=== PATIENT | female | born 1980 | race Caucasian/White ===

== ENCOUNTER 2023-04-08 16:33 | Emergency (ER) | payer OTHER, SELFPAY ==
--- NOTE | 2023-04-08 16:45 | ED.GENADULT ---
HPI - General Adult General Chief complaint: General Medical Stated complaint: leg pain, anxiety? Time Seen by Provider: 04/08/23 20:51 Source: patient Mode of arrival: ambulatory Limitations: language barrier (Patient speaks some [place], 1st language is medical interpreter used) History of Present Illness HPI narrative: 42-year-old female who presents emergency department for evaluation of depression, anxiety, body aches times months. The patient recently arrived in the [facility] from [place], 3 days prior. She states that she has been having pain in [place] for months and her primary care doctor believes that she has fibromyalgia. 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 The patient has run out of all of her medications and does not have a primary care appointment until 04/15/2023. Patient is currently complaining of feeling very stressed and anxious . Patient's has an autistic son with ADHD who was also run out of his medications and who has behavior that is under control. Her son is also patient here in the emergency department for agitation, violent behavior at school, biting 6 children. The patient believes that restart her medications she would feel better. Patient takes the following medications: Citalopram 30 mg daily. zolpedem 10 mg at night. Pregabalin 75 mg, 1 pill twice a day Relafen (nabumetone) 500 mg pills, 1 pill twice a day Zanaflex (tizanidine) 2 mg t.i.d. p.r.n. spasm Related Data Previous Rx's Medication Instructions Recorded citalopram 30 mg capsule 30 mg PO DAILY 30 days #30 caps 04/08/23 nabumetone 500 mg tablet 500 mg PO BID PRN pain 30 days #60 04/08/23 tabs pregabalin 75 mg capsule 75 mg PO BID 30 days #60 caps 04/08/23 tizanidine 2 mg tablet 2 mg PO Q8H PRN muscle spasticity 04/08/23 #60 tabs zolpidem 10 mg tablet (Ambien) 10 mg PO BEDTIME 30 days #30 tabs 04/08/23 Allergies Allergy/AdvReac Type Severity Reaction Status Date / Time Penicillins Allergy Rash Verified 04/08/23 16:52 Review of Systems Review of Systems: Yes all other systems are reviewed and are negative PMFSH Past Medical History PMFSH Narrative: Past medical history: Depression, anxiety, muscle and joint pain the most likely fibromyalgia Social History Social History Advance Directives: No Advance Directives Information Provided: No Physical Exam ED Vital Signs: Vital Signs - 24 hr 04/08/23 16:46 Temperature 98 F Pulse Rate 105 H Respiratory Rate 16 Blood Pressure 144/113 H Pulse Oximetry 99 Oxygen Delivery Method Room Air BMI result Body Mass Index 28.3 Vital signs did reveal an elevated pulse and elevated blood pressure most likely secondary to stress and anxiety Exam: General: Awake, patient is tearful, anxious, answers questions appropriate Head: Normocephalic, atraumatic EENT: PERRL, Lids normal, sclera normal, conjunctiva normal, nose normal , ears normal, throat without erythema or exudates Neck: Supple, no adenopathy, trachea midline and nontender Lung: breath sounds symmetric, no wheezing, rales or rhonchi Chest: symmetric movement, nontender Heart: regular rate and rhythm, normal S1, S2 no murmurs or rubs Abdomen: soft, non-tender, nondistended, normal bowel sounds Back: no vertebral tenderness, no CVAT Extremities: no deformities, moves all extremities symmetrically Skin: no rashes, no lesion, normal color and warmth Neuro: Awake, alert, oriented, normal speech, cranial nerves intact, moves all extremities symmetrically Psych: Patient is depressed and anxious Course Course Course Narrative: RME: 42yo F w/no sig PMHx c/o back & body pain x months, and also increasing depression. States she is out of her medications (Clonazepam, Citalopram, Zolpidem & Pregabalin-has medication bottles). Recently moved here from [place] and has no providers, admits used to follow w/pain management in [place]. denies back injury. denies incontinence/retention HTNsive, Tachycardic, Tearful, stressed/anxious. +right lumbar paraspinal ttp. ambulating w/steady gait Full HPI, ROS and PE to be performed by primary ED provider. Medical Decision Making Medical Decision Making MDM Narrative: 42-year-old female with a history of depression, anxiety, insomnia, chronic pain most likely fibromyalgia who recently arrived in the [facility] from [place] 3 days prior who has run out of medications. Patient is here with her autistic son who also has ADHD and son is also run out of his medications. The son has attended school school but has been very agitated, he has been being is had an biting other children. This is caused increased stress on the patient. Patient's examination is consistent with her depression and I believe that she has a chronic pain syndrome most likely fibromyalgia. I will refill the patient's medications as below Citalopram 30 mg daily. zolpedem 10 mg at night. Pregabalin 75 mg, 1 pill twice a day Relafen (nabumetone) 500 mg pills, 1 pill twice a day Zanaflex (tizanidine) 2 mg t.i.d. p.r.n. spasm The patient and her son was seen by our care team counselor. The patient will be referred to [facility] in [place] to get a psychiatrist, psychiatric therapy and therapy and help with her child as well. The patient was given acetaminophen 970 mg orally, ibuprofen 400 mg orally, pregabalin 75 mg orally and Zanaflex 2 mg orally here in the emergency department. Differential Diagnosis Differential Diagnoses: The differential diagnosis associated with the presentation includes Differential diagnosis includes was not limited to anxiety, depression, chronic pain since Prescription Management I considered prescription management with: Other (Patient's outpatient medications were refilled) Chronic Conditions Patient?s care impacted by: Other (Anxiety, depression, chronic to pain syndrome) Discharge Plan Discharge Clinical Impression: Anxiety, Depression, Chronic pain syndrome Patient Disposition: Home, Self-Care Additional Instructions: I refilled your medications and sent them to the [facility] on [address] [facility] in [place] Follow the care team recommendations, they are referring you to [facility] in [place] to help you get therapy, psychiatrist help with your son's problems as well. Follow-up with your doctor in 2 days. Please return to the emergency department if your symptoms get worse or if you develop any symptoms that are concerning to you. Prescriptions: New citalopram 30 mg capsule 30 mg PO DAILY 30 Days Qty: 30 0RF zolpidem [Ambien] 10 mg tablet 10 mg PO BEDTIME 30 Days Qty: 30 0RF pregabalin 75 mg capsule 75 mg PO BID 30 Days Qty: 60 0RF nabumetone 500 mg tablet 500 mg PO BID PRN (Reason: pain) 30 Days Qty: 60 0RF tizanidine 2 mg tablet 2 mg PO Q8H PRN (Reason: muscle spasticity) Qty: 60 0RF
[2023-04-08 16:46] VITALS: BP 144/113; PULSE 105; RESP 16; TEMP 36.6; O2SAT 99; BMI 28.3
[2023-04-08] MEDS: Pregabalin 75 MG CAPSULE PO (22:13)
[2023-04-08] MEDS: Ibuprofen 400 MG TABLET PO (22:13)
[2023-04-08] MEDS: Zolpidem Tartrate 5 MG TABLET 10 MG PO (22:14)
[2023-04-08] MEDS: Acetaminophen 325 MG TABLET 975 MG PO (22:14)
--- NOTE | 2023-04-08 22:17 | PC.NURSE ---
Pt medicated per sep. Waiting on pharmacy for last med. plan of care ongoing.
[2023-04-08] MEDS: TiZANidine HCL 4 MG TABLET 2 MG PO (22:22)
--- NOTE | 2023-04-08 22:33 | PC.NURSE ---
Pt ca&ox4, no signs of distress. Pts sister and bro-in law at bedside. Pt ambulates with a steady.
== END 2023-04-08 22:40 | disposition home or self-care (01) ==
PROVIDERS: Emergency Provider Emergency Medicine Emergency Medical Services
DX: F41.1 Generalized anxiety disorder (principal); F43.0 Acute stress reaction; G89.4 Chronic pain syndrome; G47.00 Insomnia, unspecified; M54.50 Low back pain, unspecified; M79.10 Myalgia, unspecified site; F43.9 Reaction to severe stress, unspecified; Z79.899 Other long term (current) drug therapy
CPT/HCPCS: 99283; 99284